=== PATIENT | female | born 1980 | race Caucasian/White ===

== ENCOUNTER 2017-03-24 16:25 | Emergency (ER) | payer MEDICAID ==
[2012-03-27 11:17] VITALS: BMI 24.3
== END 2017-03-24 18:39 | disposition home or self-care (01) ==
LOC: D.ER 16:25
DX: G43.909 Migraine, unspecified, not intractable, without status migrainosus (principal)

== ENCOUNTER 2017-10-11 19:56 | Emergency (ER) | payer MEDICAID ==
[2012-03-27 11:17] VITALS: BMI 24.3
== END 2017-10-11 23:42 | disposition home or self-care (01) ==
LOC: D.ER 19:56
DX: G43.909 Migraine, unspecified, not intractable, without status migrainosus (principal)

== ENCOUNTER → 2017-12-03 16:01 | Outpatient (CLI) | payer MEDICAID ==
[2012-03-27 11:17] VITALS: BMI 24.3
== END | disposition home or self-care (01) ==
LOC: D.CT 16:01
DX: R07.9 Chest pain, unspecified (principal)

== ENCOUNTER → 2018-04-14 08:21 | Outpatient (CLI) | payer MEDICAID ==
[2012-03-27 11:17] VITALS: BMI 24.3
== END | disposition home or self-care (01) ==
LOC: D.US 08:00
DX: E04.1 Nontoxic single thyroid nodule (principal)

== ENCOUNTER → 2019-02-23 14:52 | Outpatient (CLI) | payer MEDICAID ==
[2012-03-27 11:17] VITALS: BMI 24.3
== END | disposition home or self-care (01) ==
LOC: D.CT 14:52
PROVIDERS: ATTEND Family Medicine
DX: R00.0 Tachycardia, unspecified (principal)